=== PATIENT | female | born 1965 | race Caucasian/White ===

== ENCOUNTER 2019-09-04 07:56 | Day surgery (SDC) | payer BC ==
[2019-08-31 15:24] VITALS: BMI 27.1
[2019-09-04] MEDS ORDERED: INSULIN REGULAR HUMAN 100 UNITS/ML *VIAL SQ ONE (09:00)
[2019-09-04] MEDS ORDERED: MIDAZOLAM HCL 2 MG/2 ML SINGLE DOSE VIAL ONE (10:23)
[2019-09-04] MEDS ORDERED: PROPOFOL 20 ML ONE (10:23)
[2019-09-04] MEDS ORDERED: DEXAMETHASONE SOD PHOSPHATE 4 MG/1 ML VIAL ONE (10:23)
[2019-09-04] MEDS ORDERED: ceFAZolin SODIUM 1 GM VIAL ONE (10:23)
[2019-09-04] MEDS ORDERED: ONDANSETRON 4 MG/2 ML VIAL ONE ×2 (10:23→11:15)
[2019-09-04] MEDS ORDERED: LIDOCAINE HCL/PF 2% SDV 5ML VIAL ONE (10:23)
[2019-09-04] MEDS ORDERED: BUPIVACAINE HCL/PF 0.25% (2.5MG/ML) 10 ML VIAL IJ ONE (11:07)
[2019-09-04] MEDS ORDERED: methylPREDNISolone ACET (DEPO) 40 MG/1 ML VIAL IM ONE (11:07)
[2019-09-04] MEDS ORDERED: SUCCINYLCHOLINE CHLORIDE 200 MG/10 ML SYRINGE ONE (11:13)
[2019-09-04] MEDS ORDERED: GABAPENTIN 300 MG CAPSULE (FP) PO PRN (11:18)
[2019-09-04] MEDS ORDERED: ALBUTEROL SO4 8 GM HFA INHALER IH PRN (11:18)
--- NOTE | 2019-09-04 11:23 | PN ---
Progress Note (short form) - Note Progress Note: 54F s/p SARK POD #0. -Pain control. -WBAT RLE. -Percocet, Duexis ordered to patient's pharmacy. -f/u post-op trial of void. -Diet as tolerated. -Keep dressing clean & dry; d/c on Saturday & place waterproof Band-Aids over incision sites. -Cane vs crutches. -f/u [facility] [place] office 1 week; call for appointment; . Thom Drake MD (Orthopaedic Surgery).
--- NOTE | 2019-09-04 11:24 | OP ---
Operative Note - Note: Operative Date: 09/04/19 ( ) Pre-Operative Diagnosis: Internal derangement right knee Operation: Surgical arthroscopy right knee Findings: Tricompartment OA Post-Operative Diagnosis: Same as Pre-op Surgeon: Thom Drake Anesthesiologist/SHAGGER: Jose M Li Anesthesia: General Estimated Blood Loss (mls): 0 Fluid Volume Replaced (mls): 400 (Crystalloid) Operative Report Dictated: Yes
--- NOTE | 2019-09-04 11:44 | OP ---
DATE OF OPERATION: DATE OF DICTATION: 09/04/2019 SURGEON: Thom Drake MD PREOPERATIVE DIAGNOSIS: Synovitis and medial meniscal tear, right knee. POSTOPERATIVE DIAGNOSIS: Chondrocalcinosis with synovitis. OPERATION PERFORMED: Right knee arthroscopic lavage. ANESTHESIA: General. PROCEDURE: Patient correctly identified. Imaging was available for intraoperative evaluation in a bloodless field. The right lower extremity was prepped, draped in the routine manner with a Betadine scrub solution, wiped off with alcohol, DuraPrep applied. An anterolateral portal was utilized only. Time-out was called. The arthroscopic instrumentation introduced into the knee. Resulted in clear visualization of patchy synovitis, but the synovium was peppered with refringent-type deposits on the actual synovium diffusely throughout. This appeared to be either secondary to cortisone injections versus chronic calcinosis. The actual hyaline cartilage of the retropatellar surface of the entire femoral condyle was completely normal; however, tibial plateau particularly lateral side revealed streaking in the confines of the plateau pointing towards early degenerative arthritic changes on the right tibial plateau. The medial tibial plateau was normal. The menisci were completely normal. Intercondylar notches visualized. Found to be normal. All that we did here was a washout lavage. I gently used my scope to rub the synovium to see if I could dislodge any of the loose bodies and refringent bodies off the synovium, but this was futile. The washout washed out significant punctate, small floating lesions floating in the knee joint itself. One Marcaine steroid injection at the joint, and the portal was closed with 3-0 nylon. No complications. Thom Drake MD [id number]
[2019-09-04 13:05] VITALS: TEMP 97.8
[2019-09-04 13:06] VITALS: PULSE 76
[2019-09-04 13:11] VITALS: BP 129/73
[2019-09-04] MEDS ORDERED: INSULIN LISPRO 5 UNIT SQ SCH (14:00)
[2019-09-04] MEDS ORDERED: CARVEDILOL 6.25 MG TABLET (FP) PO SCH (22:00)
[2019-09-05] MEDS ORDERED: PATIENT'S OWN MEDICATION (NON-FORMULARY) (Insulin Glargine,Hum.Rec.Anlog [Basaglar Kwikpen SQ SCH (10:00)
== END 2019-09-04 12:50 | disposition home or self-care (01) ==
LOC: FASU 07:56
PROVIDERS: ATTEND Orthopaedic Surgery Orthopaedic Surgery of the Spine
PROC: 0SJC4ZZ Inspection of Right Knee Joint, Percutaneous Endoscopic Approach (ICD-10-PCS; principal; 2019-09-04 11:00)
DX: M11.261 Other chondrocalcinosis, right knee (principal); M65.9 Synovitis and tenosynovitis, unspecified
CPT/HCPCS: 82962; 94760

== ENCOUNTER 2019-12-09 07:22 | Inpatient (IN) | payer BC ==
[2019-11-30 16:05] VITALS: BMI 27.6
[~2019-12-09 07:22] MED LIST: CELECOXIB 200 MG CAPSULE PO ONE
[2019-12-09] MEDS ORDERED: BENZOIN/ALOE VERA/STORAX/TOLU 58 ML BOTTLE ONE (08:08)
[2019-12-09] MEDS ORDERED: oxyCODONE HCL 10 MG SUSTAINED ACTING TABLET PO ONE ×2 (08:15→08:40)
--- NOTE | 2019-12-09 08:15 | HP ---
History & Physical Update - History History: No Change - Physical Physical: No Change - Assessment Assessment: No Change - Plan Plan: No Change
[2019-12-09] MEDS ORDERED: MIDAZOLAM HCL 2 MG/2 ML SINGLE DOSE VIAL ONE ×2 (08:17→10:51)
[2019-12-09] MEDS ORDERED: SODIUM CHLORIDE 0.9% P/F 10 ML VIAL IJ ONE ×2 (08:18→10:41)
[2019-12-09] MEDS ORDERED: BUPIVACAINE LIPOSOME/PF (EXPAREL) 266 MG/20 ML VIAL ONE (08:18)
[2019-12-09] MEDS ORDERED: CELECOXIB 200 MG CAPSULE PO ONE (08:35)
[2019-12-09] MEDS ORDERED: CELECOXIB 200 MG CAPSULE ONE (08:36)
[2019-12-09] MEDS ORDERED: TRANEXAMIC ACID 1000 MG/10 ML VIAL IVPUSH ONE (10:00)
[2019-12-09] MEDS ORDERED: VANCOMYCIN 1,250 MG in DEXTROSE 5%-WATER - 250 ML IVPB ONE (10:00)
[2019-12-09] MEDS ORDERED: CEFAZOLIN 2 GM in DEXTROSE 5%-WATER - 50 ML IVPB ONE (10:00)
[2019-12-09] MEDS ORDERED: VANCOMYCIN 1,000 MG VIAL (RESTRICTED TO ID ONLY) ONE (10:07)
[2019-12-09] MEDS ORDERED: TRANEXAMIC ACID 1000 MG/10 ML VIAL ONE (10:41)
[2019-12-09] MEDS ORDERED: PROPOFOL 20 ML ONE ×7 (10:41→12:40)
[2019-12-09] MEDS ORDERED: PHENYLEPHRINE HCL 10 MG/1 ML SINGLE DOSE VIAL ONE (10:44)
[2019-12-09] MEDS ORDERED: ePHEDrine SULFATE 50 MG/1 ML AMPULE ONE (10:44)
[2019-12-09] MEDS ORDERED: SUCCINYLCHOLINE CHLORIDE 200 MG/10 ML SYRINGE ONE (10:44)
[2019-12-09] MEDS ORDERED: LIDOCAINE HCL/PF 2% SDV 5ML VIAL ONE (11:49)
--- NOTE | 2019-12-09 12:09 | HP ---
CHIEF COMPLAINT: PCP: Primary Psychiatrist: HISTORY OF PRESENT ILLNESS: Recent Events: PAST MEDICAL HISTORY: PAST SURGICAL HISTORY: Social History: Smoking: Alcohol: Drugs: Allergies shellfish derived Allergy (Severe, Verified 12/09/19 08:03) Hives CRABS, LOBSTER HOME MEDICATIONS: Home Medications Medication Instructions Recorded Gabapentin [Neurontin -] 300 mg PO BID PRN 11/11/18 Insulin Glargine,Hum.rec.anlog 45 unit SQ DAILY 11/11/18 [Basaglar Kwikpen U-100] Insulin Lispro [Humalog] 5 units SQ TID 11/11/18 Oxycodone HCl/Acetaminophen 30 mg PO Q6H PRN 11/11/18 [Oxycodone-Acetaminophen 10-325] Albuterol Sulfate Inhaler - 1 - 2 inh PO QID PRN 04/06/19 [Ventolin Hfa Inhaler -] Carvedilol [Coreg -] 6.25 mg PO BID 08/31/19 Albuterol Sulfate [Proventil Hfa] 6.7 gm IH PRN 11/30/19 Dann Chewable Aspirin 81 mg PO DAILY 11/30/19 Budesonide/Formeterol Fumarate 1 inh PO BID 11/30/19 [SYMBICORT 160/4.5mcg -] Valium 10 mg PO DAILY 11/30/19 REVIEW OF SYSTEMS CONSTITUTIONAL: Absent: fever, chills, diaphoresis, generalized weakness, malaise, loss of appetite, weight change HEENT: Absent: rhinorrhea, nasal congestion, throat pain, throat swelling, difficulty swallowing, mouth swelling, ear pain, eye pain, visual changes CARDIOVASCULAR: Absent: chest pain, syncope, palpitations, irregular heart rate, lightheadedness , peripheral edema RESPIRATORY: Absent: cough, shortness of breath, dyspnea with exertion, orthopnea, wheezing, stridor, hemoptysis GASTROINTESTINAL: Absent: abdominal pain, abdominal distension, nausea, vomiting, diarrhea, constipation, melena, hematochezia GENITOURINARY: Absent: dysuria, frequency, urgency, hesitancy, hematuria, flank pain, genital pain MUSCULOSKELETAL: Absent: myalgia, arthralgia, joint swelling, back pain, neck pain SKIN: Absent: rash, itching, pallor HEMATOLOGIC/IMMUNOLOGIC: Absent: easy bleeding, easy bruising, lymphadenopathy, frequent infections ENDOCRINE: Absent: unexplained weight gain, unexplained weight loss, heat intolerance, cold intolerance NEUROLOGIC: Absent: headache, focal weakness or paresthesias, dizziness, unsteady gait, seizure, mental status changes, bladder or bowel incontinence PHYSICAL EXAMINATION Vital Signs - 24 hr 12/09/19 08:00 Temperature 97.7 F Pulse Rate 74 Respiratory 20 Rate Blood Pressure 136/77 GENERAL: Awake, alert, and fully oriented, in no acute distress. HEAD: Normal with no signs of trauma. EYES: Pupils equal, round and reactive to light, sclera anicteric, conjunctiva clear. LUNGS: Breath sounds equal, clear to auscultation bilaterally. No wheezes, and no crackles. No accessory muscle use. HEART: Regular rate and rhythm, normal S1 and S2 ABDOMEN: Soft, nontender, not distended MUSCULOSKELETAL: Normal range of motion at all joints. No bony deformities or tenderness. No CVA tenderness. UPPER EXTREMITIES: 2+ pulses, warm, well-perfused. No cyanosis. No clubbing. No peripheral edema. LOWER EXTREMITIES: 2+ pulses, warm, well-perfused. No calf tenderness. No peripheral edema. NEUROLOGICAL: Cranial nerves II-XII intact. Normal speech. Laboratory Results - last 24 hr 12/09/19 08:22 POC Glucometer 220 ASSESSMENT/PLAN: Cardiac --no cardiac history --Revised Cardiac Risk Index for Pre-Operative Risk: 0 points, 0.4% risk of major cardiac event Pulmonary --no pulmonary history Neurological --no neurological or neurosurgical history; no history of trauma Anesthesia --no reported problems with anesthesia ECT is a low risk procedure. The relative benefits of the planned procedure outweigh the relative risks for this patient at this time.
--- NOTE | 2019-12-09 12:21 | HP ---
HISTORY OF PRESENT ILLNESS: 54 year-old female with a PMH significant for HTN, Type I IDDM, non-obstructive CAD, asthma, and right knee osteoarthritis s/p right total knee replacement with Dr. Thom Drake on 12/09/19. PAST MEDICAL HISTORY: Hypertension Type I IDDM (age 14) Non-obstructive coronary artery disease Asthma PAST SURGICAL HISTORY: Anterior cervical discectomy and fusion C4-C5 Right knee arthroscopy Cardiac catheterization Hysterectomy Social History: Smoking: current every day Alcohol: no Drugs: marijuana Family history: Mother heart disease, DM Father heart disease, DM Allergies shellfish derived Allergy (Severe, Verified 12/09/19 08:03) Hives CRABS, LOBSTER HOME MEDICATIONS: Home Medications Medication Instructions Recorded Gabapentin [Neurontin -] 300 mg PO BID PRN 11/11/18 Insulin Glargine,Hum.rec.anlog 45 unit SQ DAILY 11/11/18 [Basaglar Kwikpen U-100] Insulin Lispro [Humalog] 5 units SQ TID 11/11/18 Oxycodone HCl/Acetaminophen 30 mg PO Q6H PRN 11/11/18 [Oxycodone-Acetaminophen 10-325] Albuterol Sulfate Inhaler - 1 - 2 inh PO QID PRN 04/06/19 [Ventolin Hfa Inhaler -] Carvedilol [Coreg -] 6.25 mg PO BID 08/31/19 Albuterol Sulfate [Proventil Hfa] 6.7 gm IH PRN 11/30/19 Dann Chewable Aspirin 81 mg PO DAILY 11/30/19 Budesonide/Formeterol Fumarate 1 inh PO BID 11/30/19 [SYMBICORT 160/4.5mcg -] Valium 10 mg PO DAILY 11/30/19 REVIEW OF SYSTEMS CONSTITUTIONAL: Absent: fever, chills, diaphoresis, generalized weakness, malaise, loss of appetite, weight change HEENT: Absent: rhinorrhea, nasal congestion, throat pain, throat swelling, difficulty swallowing, mouth swelling, ear pain, eye pain, visual changes CARDIOVASCULAR: Absent: chest pain, syncope, palpitations, irregular heart rate, lightheadedness , peripheral edema RESPIRATORY: Absent: cough, shortness of breath, dyspnea with exertion, orthopnea, wheezing, stridor, hemoptysis GASTROINTESTINAL: Absent: abdominal pain, abdominal distension, nausea, vomiting, diarrhea, constipation, melena, hematochezia GENITOURINARY: Absent: dysuria, frequency, urgency, hesitancy, hematuria, flank pain, genital pain MUSCULOSKELETAL: Absent: myalgia, arthralgia, joint swelling, back pain, neck pain SKIN: Absent: rash, itching, pallor HEMATOLOGIC/IMMUNOLOGIC: Absent: easy bleeding, easy bruising, lymphadenopathy, frequent infections ENDOCRINE: Absent: unexplained weight gain, unexplained weight loss, heat intolerance, cold intolerance NEUROLOGIC: Absent: headache, focal weakness or paresthesias, dizziness, unsteady gait, seizure, mental status changes, bladder or bowel incontinence PSYCHIATRIC: Absent: anxiety, depression, suicidal or homicidal ideation, hallucinations. PHYSICAL EXAMINATION Vital Signs - 24 hr 12/09/19 08:00 Temperature 97.7 F Pulse Rate 74 Respiratory 20 Rate Blood Pressure 136/77 GENERAL: Awake, alert, and fully oriented, in no acute distress. HEAD: Normal with no signs of trauma. EYES: Pupils equal, round and reactive to light, extraocular movements intact, sclera anicteric, conjunctiva clear. No lid lag. EARS, NOSE, THROAT: Ears normal, nares patent, oropharynx clear without exudates. Moist mucous membranes. NECK: Normal range of motion, supple without lymphadenopathy, JVD, or masses. LUNGS: Breath sounds equal, clear to auscultation bilaterally. No wheezes, and no crackles. No accessory muscle use. HEART: Regular rate and rhythm, normal S1 and S2 without murmur, rub or gallop. ABDOMEN: Soft, nontender, not distended, normoactive bowel sounds, no guarding, no rebound, no masses. No hepatomegaly or splenomegaly. MUSCULOSKELETAL: Normal range of motion at all joints. No bony deformities or tenderness. No CVA tenderness. UPPER EXTREMITIES: 2+ pulses, warm, well-perfused. No cyanosis. No clubbing. No peripheral edema. LOWER EXTREMITIES: 2+ pulses, warm, well-perfused. No calf tenderness. No peripheral edema. NEUROLOGICAL: Cranial nerves II-XII intact. Normal speech. Normal gait. PSYCHIATRIC: Cooperative. Good eye contact. Appropriate mood and affect. SKIN: Warm, dry, normal turgor, no rashes or lesions noted, normal capillary refill. Laboratory Results - last 24 hr 12/09/19 08:22 POC Glucometer 220 Pre op Hgb 14.6 BUN 19 Cr 0.8 Intra op Ancef x 2g; Vanc x 1g EBL <100mL LR 700mL ASSESSMENT/PLAN 54 year-old female with a PMH significant for HTN, Type I IDDM, non-obstructive CAD, asthma, and right knee osteoarthritis s/p right total knee replacement with Dr. Thom Drake on 12/09/19. Right total knee replacement --POD #0 --perioperative antibiotics per surgery --pain management per surgery --ASA 81mg BID --protonix --bowel regimen --incentive spirometry --Hemovac drain, monitor output Hypertension --continue carvedilol Type I IDDM --Levemir 45U daily --Novolog sliding scale coverage Non-obstructive CAD --continue ASA, carvedilol Asthma --albuterol inhaler PRN FEN Fluids: LR@125mL/hr Electrolytes: replete as indicated Nutrition: regular diet DVT prophylaxis: OOB, ambulation, SCDs, TEDs, ASA 81mg BID Physical therapy Dispo: continues to require inpatient care. Full code. Visit type - Emergency Visit Emergency Visit: No - New Patient This patient is new to me today: Yes Date on this admission: 12/21/19 - Critical Care Critical Care patient: No
[2019-12-09] MEDS ORDERED: ceFAZolin SODIUM 1 GM VIAL ONE (13:26)
[2019-12-09] MEDS ORDERED: ONDANSETRON 4 MG/2 ML VIAL IVPUSH PRN ×2 (13:51→14:00)
[2019-12-09] MEDS ORDERED: MAGNESIUM HYDROX 2400MG/30ML ORAL SUSPENSION 30 ML CUP PO PRN (13:51)
[2019-12-09] MEDS ORDERED: MAG HYDROX/AL HYDROX/SIMETH 30 ML UNIT-DOSE CUP PO PRN (13:51)
[2019-12-09] MEDS ORDERED: ALBUTEROL SO4 HFA INHALER IH PRN (13:53)
[2019-12-09] MEDS ORDERED: LACTATED RINGERS SOLUTION 1,000 ML IV SCH ×2 (14:00)
[2019-12-09] MEDS ORDERED: HYDROmorphone HCL CARPU-JECT 1 MG/1 ML DISP.SYRIN IVPUSH PRN ×2 (14:00)
[2019-12-09] MEDS ORDERED: ALBUTEROL SO4 HFA INHALER IH SCH (14:00)
[2019-12-09] MEDS ORDERED: INSULIN LISPRO 5 UNIT SQ SCH (14:00)
--- NOTE | 2019-12-09 14:00 | OP ---
Operative Note - Note: Operative Date: 12/09/19 Pre-Operative Diagnosis: right knee osteoarthritis Operation: right total knee replacment Surgeon: Thom Drake Beater Engineer: Dee Dee Boles Anesthesiologist/WIRE STRAIGHTENING MACHINE OPERATOR: Miracle Zepeda Anesthesia: Spinal Estimated Blood Loss (mls): 50 Fluid Volume Replaced (mls): 700 Operative Report Dictated: Yes
[2019-12-09] MEDS ORDERED: diazePAM 5 MG TABLET PO PRN ×2 (14:02→14:30)
[2019-12-09] MEDS: ACETAMINOPHEN 325 MG TABLET (FP) PO SCH ×2 (14:40→21:27)
[2019-12-09] MEDS: oxyCODONE HCL 5 MG TABLET PO PRN ×2 (14:45→17:16)
[2019-12-09] MEDS ORDERED: INSULIN (NOVOLOG) ASPART 100 UNITS/ML 10ML VIAL SQ SCH (16:45)
[2019-12-09] MEDS ORDERED: INSULIN SLIDING SCALE (NOVOLOG) 1 VIAL SQ ONE (17:14)
[2019-12-09] MEDS: KETOROLAC TROMETHAMINE 30 MG/1 ML VIAL IVPUSH PRN (19:55)
[2019-12-09] MEDS: CEFAZOLIN 1 GM/D5W 1 GM/50 ML BAG IVPB SCH (21:28)
[2019-12-09] MEDS: SENNOSIDES/DOCUSATE COMBO (SENNA PLUS) TABLET (UD) PO SCH (21:28)
[2019-12-09] MEDS: GABAPENTIN 300 MG CAPSULE PO SCH (21:28)
[2019-12-09] MEDS: ASPIRIN 81 MG CHEWABLE TABLETS PO SCH (21:28)
[2019-12-09] MEDS: BUDESONIDE/FORMETEROL FUMARATE 160/4.5 mcg INHALER IH SCH (21:29)
[2019-12-09] MEDS: LIDOCAINE PATCH REMOVAL MC SCH (21:29)
[2019-12-09] MEDS: INSULIN SLIDING SCALE (NOVOLOG) 1 VIAL SQ SCH (21:35)
[2019-12-09] MEDS ORDERED: oxyCODONE HCL 10 MG SUSTAINED ACTING TABLET PO SCH (22:00)
[2019-12-09] MEDS ORDERED: CARVEDILOL 6.25 MG TABLET (FP) PO SCH (22:00)
[2019-12-10] MEDS: ACETAMINOPHEN 325 MG TABLET (FP) PO SCH ×4 (05:48→21:27)
[2019-12-10] MEDS: CEFAZOLIN 1 GM/D5W 1 GM/50 ML BAG IVPB SCH (05:56)
[2019-12-10] MEDS: KETOROLAC TROMETHAMINE 30 MG/1 ML VIAL IVPUSH PRN ×2 (06:53→17:22)
[2019-12-10] MEDS: INSULIN (LEVEMIR) 100 UNITS/ML UNITS SQ SCH (06:55)
[2019-12-10] MEDS: INSULIN SLIDING SCALE (NOVOLOG) 1 VIAL SQ SCH ×4 (06:55→21:28)
[2019-12-10 07:39] LABS: HEMATOCRIT 37.4 % (32.4-45.2); HEMOGLOBIN 12.5 GM/dl (10.7-15.3); MCH 31.1 pg (25.7-33.7); MCHC 33.3 g/dl (32.0-36.0); MEAN CELL VOLUME 93.4 fl (80-96); MEAN PLT VOLUME 9.3 fl (7.5-11.1); PLATELET COUNT 226 K/MM3 (134-434); RBC 4.01 M/mm3 (3.60-5.2); RDW 11.1 % (11.6-15.6); WHITE BLOOD COUNT 8.1 K/mm3 (4.0-10.8)
[2019-12-10 07:43] LABS: CREATININE 0.9 mg/dl (0.55-1.3); MAGNESIUM 1.8 mg/dL (1.8-2.4); POTASSIUM 4.9 mmol/L (3.5-5.1)
[2019-12-10] MEDS ORDERED: PT OWN MED DRAWER 7, Y5N ONE ×3 (08:17→21:57)
--- NOTE | 2019-12-10 08:28 | PN ---
Physical Exam: SUBJECTIVE: Patient seen and examined OBJECTIVE: Vital Signs Period Temp Pulse Resp BP Sys/Farooq Pulse Ox Last 24 Hr 97.5 F-98.7 F 70-89 13-19 121-178/67-89 95-100 GENERAL: The patient is awake, alert, and fully oriented, in no acute distress. LUNGS: Breath sounds equal, clear to auscultation bilaterally, no wheezes, no crackles, no accessory muscle use. HEART: Regular rate and rhythm, S1, S2 ABDOMEN: Soft, nontender, nondistended, normoactive bowel sounds, no guarding, no rebound, no hepatosplenomegaly, no masses. LLE: surgical dressing c/d/i; flex/extend toes, sensory intact; TEDs, SCDs NEUROLOGICAL: Cranial nerves II through XII grossly intact. Normal speech Laboratory Results - last 24 hr 12/09/19 12/09/19 12/09/19 14:03 17:08 21:33 WBC RBC Hgb Hct MCV MCH MCHC RDW Plt Count MPV Sodium Potassium Chloride Carbon Dioxide Anion Gap BUN Creatinine Est GFR (CKD-EPI)AfAm Est GFR (CKD-EPI)NonAf POC Glucometer 186 233 293 Random Glucose Calcium Magnesium 12/10/19 12/10/19 12/10/19 06:30 06:30 06:45 WBC 8.1 RBC 4.01 Hgb 12.5 Hct 37.4 MCV 93.4 MCH 31.1 MCHC 33.3 RDW 11.1 L Plt Count 226 MPV 9.3 Sodium 135 L Potassium 4.9 Chloride 102 Carbon Dioxide 25 Anion Gap 8 BUN 21.0 H Creatinine 0.9 Est GFR (CKD-EPI)AfAm 84.01 Est GFR (CKD-EPI)NonAf 72.49 POC Glucometer 263 Random Glucose 297 H Calcium 9.0 Magnesium 1.8 Active Medications Generic Name Dose Route Start Last Admin Trade Name Freq PRN Reason Stop Dose Admin Acetaminophen 650 mg 12/09/19 21:00 12/10/19 05:48 Tylenol - PO 12/12/19 20:59 Not Given Q6H ARIE Al Hydroxide/Mg Hydroxide 30 ml 12/09/19 13:51 Mylanta Oral Suspension - PO Q4H PRN DYSPEPSIA Albuterol Sulfate 1 - 2 puff 12/09/19 13:53 12/09/19 21:52 Ventolin Hfa Inhaler - IH 1 inh QID PRN Administration ASTHMA Aspirin 81 mg 12/09/19 22:00 12/09/19 21:28 Asa - PO 81 mg BID [facility] Administration Budesonide/Formoterol Fumarate 1 puff 12/09/19 22:00 12/09/19 21:29 Symbicort 160/4.5mcg - IH 1 puff BID ARIE Administration Diazepam 10 mg 12/10/19 20:00 Valium - PO DAILY@2000 PRN MUSCLE SPASMS Gabapentin 300 mg 12/09/19 22:00 12/09/19 21:28 Neurontin - PO 300 mg BID [facility] Administration Insulin Aspart 1 vial 12/09/19 22:00 12/10/19 06:55 Novolog Vial Sliding Scale - SQ 6 units ACHS [facility] Administration Protocol Insulin Detemir 45 units 12/10/19 07:00 12/10/19 06:55 Levemir Vial SQ 45 units DAILY@0700 [facility] Administration Ketorolac Tromethamine 30 mg 12/09/19 19:45 12/10/19 06:53 Toradol Injection - IVPUSH 12/14/19 19:44 30 mg Q6H PRN Administration PAIN LEVEL 1-5 Lidocaine 1 patch 12/10/19 10:00 Lidoderm Patch - TP DAILY [facility] Magnesium Hydroxide 30 ml 12/09/19 13:51 Milk Of Magnesia - PO PRN PRN CONSTIPATION Miscellaneous 1 each 12/09/19 22:00 12/09/19 21:29 Lidoderm Patch Removal MC 1 each DAILY@2200 [facility] Administration Multivitamins/Minerals/Vitamin C 1 tab 12/10/19 10:00 Tab-A-Vit - PO DAILY [facility] Carvedilol 6.25 Mg 6.25 each 12/10/19 10:00 Tablet (Pt's Own) PO BID [facility] Ondansetron HCl 4 mg 12/09/19 14:00 Zofran Injection IVPUSH Q6H PRN NAUSEA AND/OR VOMITING Oxycodone HCl 10 mg 12/09/19 14:00 Roxicodone - PO Q3H PRN PAIN LEVEL 1-5 Oxycodone HCl 15 mg 12/09/19 15:00 12/09/19 17:16 Roxicodone - PO 15 mg Q3H PRN Administration PAIN LEVEL 6-10 Pantoprazole Sodium 40 mg 12/10/19 10:00 Protonix - PO DAILY ARIE Senna/Docusate Sodium 2 tablet 12/09/19 22:00 12/09/19 21:28 Pericolace - PO 2 tablet BID ARIE Administration Pre op Hgb 14.6 BUN 19 Cr 0.8 Intra op Ancef x 2g; Vanc x 1g EBL <100mL LR 700mL ASSESSMENT/PLAN 54 year-old female with a PMH significant for HTN, Type I IDDM, non-obstructive CAD, asthma, and right knee osteoarthritis s/p right total knee replacement with Dr. Thom Drake on 12/09/19. Right total knee replacement --POD #0 --perioperative antibiotics per surgery --pain management per surgery --ASA 81mg BID --protonix --bowel regimen --incentive spirometry --Hemovac drain, monitor output Hypertension --continue carvedilol Type I IDDM --Levemir 45U daily --Novolog sliding scale coverage Non-obstructive CAD --continue ASA, carvedilol Asthma --albuterol inhaler PRN FEN Fluids: PO intake adequate Electrolytes: replete as indicated Nutrition: regular diet DVT prophylaxis: OOB, ambulation, SCDs, TEDs, ASA 81mg BID Physical therapy Dispo: continues to require inpatient care. Full code. Visit type - Emergency Visit Emergency Visit: No - New Patient This patient is new to me today: No - Critical Care Critical Care patient: No
--- NOTE | 2019-12-10 09:31 | PN ---
Progress Note (short form) - Note Progress Note: POD#1 PT complains of some Wheezing this. NO CP or nausea. Vital Signs Period Temp Pulse Resp BP Sys/Farooq Pulse Ox Last 24 Hr 97.5 F-98.7 F 70-89 13-19 121-178/67-89 95-100 hemovac:75ml GEN: A&0x3, NAD. OOB to chair CV: RRR Lungs: expiratory wheezing b/l to anterior chest, speaking in full sentences LE; no calf tenderness or swelling noted b/l. 5/5 dorsi/plantar flexion b/l. MO /SCds in place. Right knee: dresing c/d/i CBC, BMP 12/10/19 06:30 12/10/19 06:30 A/P: 54 yo female s/p Right TRK Spoke with nursing staff and will give pt her daily meds for asthma OOB and ambulate with PT DVT ppx with aspirin 81mg oral BID, SCDs/Teds Oral pain managment/stool softners to avoid constipation D/w Dr. Drake
--- NOTE | 2019-12-10 09:32 | OP ---
DATE OF OPERATION: DATE OF DICTATION: 12/09/2019 SURGEON: Thom Drake MD DATABASE ENGINEER: DIANE Garza PREOPERATIVE DIAGNOSIS: Tricompartmental osteoarthritis, right knee. POSTOPERATIVE DIAGNOSIS: Tricompartmental osteoarthritis, right knee. OPERATION PERFORMED: Right posterior-stabilized cemented total knee replacement. ANESTHESIA: Conscious sedation with spinal anesthesia and peripheral nerve block. ANTIBIOTICS GIVEN: Ancef 2 g and vancomycin 1 g preop; Ancef 1 g given at the end of the procedure. DESCRIPTION OF PROCEDURE: With the patient in the supine position, the right lower extremity was prepped and draped in the routine manner with Betadine scrub solution, wiped off with alcohol, and DuraPrep applied. A midline incision was utilized. The skin was opened. Subcutaneous dissection down to the fascia. The plane of the subcutaneous bed was exposed by first freeing the epimysial tissue off the medial aspect of the vastus medialis all the way down to the linea aspera medially. The medial aspect of the proximal tibia was freed by using a Bovie to free the soft tissue bed off the proximal tibial tissue. This was then up to the epimysial dissection medially. With finger dissection, the plane between the quadriceps and the bone was facilitated. A was placed in this position. The suprapatellar pouch was transected and the superior tissues resected, the tissues in the suprapatellar pouch. The knee was flexed. This was a tight knee. The appropriate jigs were utilized from [employer]. The tibia was cut to neutral in the line of the mechanical axis of the tibia; 2 mm of resection of the medial side was performed, the medial side being the most affected. The femur drill hole was inserted just superior to the intercondylar notch. The sword seated for the initial starter jig. This was followed with all the appropriate jigs the chamfer cuts, etc. These were appropriately performed. The flexion and extension gaps were measured at 9 mm. Complete stability at 9 mm was achieved, both in flexion and extension. Shock test appeared to be negative. This was noticeable in terms of kinetics once the actual trial components were inserted. All of the jig cuts enabled seating of the trial components to measure a size 4 Triathlon posterior-stabilized femoral component. A size 5 tibial baseplate was utilized. The patella was cut from the quadriceps tendon to the patellar ligament to receive an appropriate 27-mm polyethylene patellar liner. Once all jig cuts were made, trialing was performed, revealing excellent position of the implants and full reestablishment of the alignment of the knee in terms of the mechanical axis and a kinematics range of motion with a 9-mm polyethylene spacer of complete normality. Once this had been performed and we were happy with the flexion and extension gaps, the kinematics as well as the alignment, the bone bed was thoroughly lavaged with pulse lavage. Cementing was in 1 layer: Tibia, femur and then patella. A size 9-mm spacer was placed as well to help compress the implant and cement the component into the bone bed. The cement cured. Extraneous cement was removed. The tissue was thoroughly lavaged. A 9-mm polyethylene liner was inserted. This was a posterior-stabilized component. The wounds were thoroughly lavaged. The tissues were closed as follows: Retinacular tissue with 1 Vicryl, subcutaneous with 1 Vicryl, skin with 3-0 Monocryl and Steri-Strips. Drains: A 1/8-inch brought out laterally, draining the medial vastus bed. Kinematics were excellent. Range of motion was 0 to 120 degrees without any difficulty and complete stability achieved on the table. The operation went well. No complications. MD JOSTIN Cast/[id number]
[2019-12-10] MEDS: SENNOSIDES/DOCUSATE COMBO (SENNA PLUS) TABLET (UD) PO SCH ×2 (09:39→21:28)
[2019-12-10] MEDS: ASPIRIN 81 MG CHEWABLE TABLETS PO SCH ×2 (09:39→21:27)
[2019-12-10] MEDS: GABAPENTIN 300 MG CAPSULE PO SCH ×2 (09:39→21:27)
[2019-12-10] MEDS: PANTOPRAZOLE 40 MG TABLET PO SCH (09:39)
[2019-12-10] MEDS: oxyCODONE HCL 5 MG TABLET PO PRN ×3 (09:40→17:22)
[2019-12-10] MEDS ORDERED: PATIENT'S OWN MEDICATION (NON-FORMULARY) (Insulin Glargine,Hum.Rec.Anlog [Basaglar Kwikpen SQ SCH (10:00)
[2019-12-10] MEDS ORDERED: LIDOCAINE 5% TOPICAL PATCH TP SCH (10:00)
[2019-12-10] MEDS ORDERED: MULTIVITAMINS (DAILY MVI) TABLET (FP) PO SCH (10:00)
[2019-12-10] MEDS: BUDESONIDE/FORMETEROL FUMARATE 160/4.5 mcg INHALER IH SCH ×2 (11:00→21:28)
--- NOTE | 2019-12-10 11:29 | PN ---
Progress Note (short form) - Note Progress Note: POD #1 s/p R TKR under spinal anesthesia with adductor canal/selective tibial nerve block. Patient doing well, pain under control. All questions answered.
[2019-12-10] MEDS ORDERED: diazePAM 5 MG TABLET PO PRN (20:00)
[2019-12-10] MEDS: LIDOCAINE PATCH REMOVAL MC SCH (21:27)
[2019-12-11] MEDS: ACETAMINOPHEN 325 MG TABLET (FP) PO SCH ×2 (04:40→09:26)
[2019-12-11] MEDS: KETOROLAC TROMETHAMINE 30 MG/1 ML VIAL IVPUSH PRN (05:52)
--- NOTE | 2019-12-11 05:55 | PN ---
Progress Note (short form) - Note Progress Note: last pm fixed hemovac site where the tubing connected to the canister with a repair adapter. It had been pulled out during PT and was leaking. Secured site with tegaderm.
[2019-12-11] MEDS: INSULIN (LEVEMIR) 100 UNITS/ML UNITS SQ SCH (06:32)
[2019-12-11] MEDS: INSULIN SLIDING SCALE (NOVOLOG) 1 VIAL SQ SCH (06:32)
[2019-12-11] MEDS: oxyCODONE HCL 5 MG TABLET PO PRN (07:01)
--- NOTE | 2019-12-11 07:24 | SURG ---
Surgery Custom Tailor Apprentice Note Custom Tailor Apprentice: Dee Dee Boles PA-C Date of Service: 12/09/19 Diagnosis: right knee osteoarthritis Procedure: right total knee replacment I was present for the entirety of the operative procedure. For further detail, please refer to operative report. Visit type - Case Type Case Type: Scheduled - Emergency Emergency Visit: No - New patient This patient is new to me today: Yes Date on this admission: 12/11/19
--- NOTE | 2019-12-11 07:32 | PN ---
Progress Note (short form) - Note Progress Note: ORTHOPAEDIC SURGERY POD #2 No acue events per RN notes. Alert. Sitting in chair at bedside with legs in extension. Ice pack in place. C/o incisional pain Last Vital Signs Temp Pulse Resp BP Pulse Ox 98.2 F 110 H 18 150/78 94 L 12/11/19 06:00 12/11/19 06:00 12/11/19 06:00 12/11/19 06:00 12/11/19 06:00 CBC, BMP 12/11/19 07:00 12/10/19 06:30 GEN: A&0x3, NAD CV: RRR Lungs: CTA b/l RLE: dressing c/d/i. No evidence of a hematoma. All compartments soft. SCDs/ TEDs bilat. 5/5 dorsi/plantar flexion b/l. Hemovac removed while on rounds Problem List - Problems (1) Status post total right knee replacement using cement Assessment/Plan: POD #2 s/p Right TKR Continue DVT ppx OOB and ambuatle with PT DVT ppx with ASA 81mg bid x 6 weeks, MO/SCDs Cleared for DC home today Above plan discussed with Dr. Thom Drake and agrees. Problems reviewed: Yes Code(s): Z96.651 - PRESENCE OF RIGHT ARTIFICIAL KNEE JOINT
[2019-12-11 07:52] LABS: HEMATOCRIT 33.3 % (32.4-45.2); HEMOGLOBIN 11.1 GM/dl (10.7-15.3); MCH 31.1 pg (25.7-33.7); MCHC 33.4 g/dl (32.0-36.0); MEAN CELL VOLUME 93.2 fl (80-96); MEAN PLT VOLUME 10.4 fl (7.5-11.1); PLATELET COUNT 207 K/MM3 (134-434); RBC 3.57 M/mm3 (3.60-5.2); RDW 10.9 % (11.6-15.6); WHITE BLOOD COUNT 8.6 K/mm3 (4.0-10.8)
--- NOTE | 2019-12-11 08:43 | DS ---
"Physical Exam: SUBJECTIVE: Patient seen and examined OBJECTIVE: Vital Signs Period Temp Pulse Resp BP Sys/Farooq Pulse Ox Last 24 Hr 97.4 F-99.5 F 90-110 16-18 138-158/58-78 94-95 PHYSICAL EXAM GENERAL: The patient is awake, alert, and fully oriented, in no acute distress. LUNGS: Breath sounds equal, clear to auscultation bilaterally, no wheezes, no crackles, no accessory muscle use. HEART: Regular rate and rhythm, S1, S2 ABDOMEN: Soft, nontender, nondistended, normoactive bowel sounds, no guarding, no rebound, no hepatosplenomegaly, no masses. LLE: surgical dressing c/d/i; flex/extend toes, sensory intact; TEDs, SCDs NEUROLOGICAL: Cranial nerves II through XII grossly intact. Normal speech LABS Laboratory Results - last 24 hr 12/10/19 12/10/19 12/10/19 11:28 16:47 21:25 WBC RBC Hgb Hct MCV MCH MCHC RDW Plt Count MPV POC Glucometer 373 272 338 12/11/19 12/11/19 06:27 07:00 WBC 8.6 RBC 3.57 L Hgb 11.1 Hct 33.3 MCV 93.2 MCH 31.1 MCHC 33.4 RDW 10.9 L Plt Count 207 MPV 10.4 POC Glucometer 332 HOSPITAL COURSE: Date of Admission:12/09/19 Date of Discharge: 12/11/19 54 year-old female with a PMH significant for HTN, Type I IDDM, non-obstructive CAD, asthma, and right knee osteoarthritis s/p right total knee replacement with Dr. Thom Drake on 12/09/19. Right total knee replacement --post-operative course uncomplicated; perioperative antibiotics complete; pain well-managed on PO meds --ASA 81mg BID x 6 weeks Hypertension --continued carvedilol Type I IDDM --Levemir 45U daily --Novolog sliding scale coverage Non-obstructive CAD --continued ASA, carvedilol Asthma --albuterol inhaler PRN ISTOP The Drug Utilization Report below displays all of the controlled substance prescriptions, if any, that your patient has filled in the last twelve months. The information displayed on this report is compiled from pharmacy submissions to the Department, and accurately reflects the information as submitted by the pharmacies. This report was requested by: Angela Villagomez | Reference #: [id number] Others' Prescriptions Patient Name: Kyleigh Waters Date: 1965 Address: [address] [place] [address] Sex: Female Rx Written Rx Dispensed Drug Quantity Days Supply Prescriber Name 11/19/2019 11/22/2019 oxycodone hcl 30 mg tablet 90 30 Shein, Thom Duque MD 11/19/2019 11/19/2019 diazepam 10 mg tablet 30 30 Shein, Thom Duque MD 10/15/2019 10/23/2019 oxycodone hcl 30 mg tablet 90 30 Shein, Thom Duque MD 09/18/2019 09/24/2019 oxycodone hcl 30 mg tablet 90 30 Shein, Thom Duque MD 08/25/2019 08/25/2019 oxycodone hcl 30 mg tablet 120 30 Shein, Thom Duque MD 07/17/2019 07/27/2019 oxycodone hcl 30 mg tablet 90 30 Shein, Thom Duque MD 07/17/2019 07/19/2019 zolpidem tartrate 10 mg tablet 30 30 Shein, Thom Duque MD 06/25/2019 06/27/2019 oxycodone hcl 30 mg tablet 90 30 Shein, Thom Duque MD 06/25/2019 06/27/2019 zolpidem tartrate 10 mg tablet 30 30 Shein, Thom Duque MD 05/25/2019 05/27/2019 oxycodone hcl 30 mg tablet 90 30 Shein, Thom Duque MD 04/28/2019 04/28/2019 oxycodone hcl 30 mg tablet 90 30 Shein, Thom Duque MD 04/28/2019 04/28/2019 zolpidem tartrate 10 mg tablet 30 30 Shein, Thom Duque MD 03/19/2019 03/27/2019 oxycodone hcl 30 mg tablet 90 30 Shein, Thom Duque MD 03/19/2019 03/22/2019 zolpidem tartrate 10 mg tablet 30 30 Shein, Thom THAKUR S MD 02/19/2019 02/26/2019 oxycodone hcl 30 mg tablet 90 30 Thom Drake MS, MD 02/19/2019 02/19/2019 zolpidem tartrate 10 mg tablet 30 30 Thom Drake MS, MD 01/22/2019 01/26/2019 oxycodone hcl 30 mg tablet 90 30 Thom Drake MS, MD 12/24/2018 12/27/2018 oxycodone hcl 30 mg tablet 90 30 Thom Drake MS, MD Minutes to complete discharge: 35 Discharge Summary Problems reviewed: Yes Reason For Visit: RIGHT KNEE OSTEOARTHRITIS Condition: Improved - Instructions Diet, Activity, Other Instructions: Dr. Drake Discharge Instructions for Knee Replacement Post Operative Instructions Physical activity Physical Therapist will come to your home for the first 5 days. You will be set up with outpatient PT at your first post-operative visit. Use assistive devices for ambulation at all times. Weight bearing as tolerated on your surgical side. Do not put pillow under knee. May put pillow under heel. Wound care Leave your surgical dressing in place. Do not change the dressing until seen by your surgeon in the office. No baths or showers. Do not submerge your incision. Do not apply any ointments or lotions to your incision. Please call the office if your dressing is soiled/dirty or is falling off. Apply Graduated Compression Stockings (TEDS) to both lower extremities - remove daily for hygiene ONLY. Diet There are no dietary restrictions. Eat healthy, high-fiber foods. Drink 6 to 8 glasses of liquid each day. This will assist in keeping your bowels are regular. Pain management Any pain prescription medication ordered should be taken as prescribed for moderate to severe pain. Do not take additional Tylenol while taking Percocet. Take Aspirin 81 mg two times a day for a total of 6 weeks to prevent blood clots. Call Dr. Drake for any of the following: Severe pain not relieved by medication Fever of 101 or higher Excessive bleeding or drainage on dressing Inability to urinate If you experience chest pain or shortness of breath, please seek emergency care immediately. Please call the office at to confirm your post-op appointment for the week following surgery. This report was requested by: Dee Dee Boles | Reference #: [id number] 11/22/2019 oxycodone hcl 30 mg / 90 tablets / Thom Drake MS, MD 11/19/2019 diazepam 10 mg / 30 tablets / Thom Drake MS, MD Referrals: Thom Drake MD [Staff Physician] - Disposition: VNS/HOME HEALTH CARE - Home Medications Comprehensive Discharge Medication List: Ambulatory Orders Gabapentin [Neurontin -] 300 mg PO BID PRN 11/11/18 Insulin Glargine,Hum.rec.anlog [Basaglar Kwikpen U-100] 45 unit SQ DAILY Insulin Lispro [Humalog] 5 units SQ TID 11/11/18 Oxycodone HCl/Acetaminophen [Oxycodone-Acetaminophen 10-325] 30 mg PO Q6H PRN Albuterol Sulfate Inhaler - [Ventolin Hfa Inhaler -] 1 - 2 inh PO QID PRN Carvedilol [Coreg -] 6.25 mg PO BID 08/31/19 Albuterol Sulfate [Proventil Hfa] 6.7 gm IH PRN 11/30/19 Dann Chewable Aspirin 81 mg PO DAILY 11/30/19 Budesonide/Formeterol Fumarate [SYMBICORT 160/4.5mcg -] 1 inh PO BID 11/30/19 Valium 10 mg PO DAILY 11/30/19 Prescription Drug Monitoring Program (I-STOP) results: I-STOP reviewed and no issues identified This patient is new to me today: No Emergency Visit: No Critical Care patient: No - Discharge Referral Referred to [facility] No"
[2019-12-11] MEDS: ASPIRIN 81 MG CHEWABLE TABLETS PO SCH (09:26)
[2019-12-11] MEDS: PANTOPRAZOLE 40 MG TABLET PO SCH (09:27)
[2019-12-11] MEDS: SENNOSIDES/DOCUSATE COMBO (SENNA PLUS) TABLET (UD) PO SCH (09:27)
[2019-12-11] MEDS: GABAPENTIN 300 MG CAPSULE PO SCH (09:27)
[2019-12-11] MEDS: BUDESONIDE/FORMETEROL FUMARATE 160/4.5 mcg INHALER IH SCH (09:27)
[2019-12-11 13:28] VITALS: BP 152/54; PULSE 96; TEMP 98.4
--- NOTE | 2019-12-11 14:49 | PATH ---
Surgical Pathology Report Patient Name: OLGA BEGUM Med. Rec. #: [id number] /Age/Gender: 1965 (Age: 54) / F Account: [id number] Location: [facility] Taken: 12/09/2019 Received: 12/09/2019 Reported: 12/11/2019 Physicians: Thom Drake M.D. Specimen(s) Received RIGHT KNEE BONES Clinical History Right knee osteoarthritis Final Diagnosis BONE, KNEE, RIGHT, TOTAL KNEE REPLACEMENT: BONE WITH DEGENERATIVE JOINT DISEASE AND FIBROADIPOSE TISSUE. Electronically Signed Chitra Davidson M.D. Gross Description Received in formalin labeled "right knee bone," is a 12.0 x 10.5 x 1.2 cm aggregate of multiple portions of bone and soft tissue. The tibial plateau measures 7.6 x 5.0 x 1.3 cm. There are no areas of eburnation identified. The articular surfaces are hancock-yellow and focally granular. The underlying trabecular bone is yellow and hard. Brazer Induction sections are submitted in one cassette, following decalcification. /12/10/2019 [facility]12/10/2019
== END 2019-12-11 14:41 | disposition home health service (06) | DRG 470 ==
LOC: FM/S 07:22
PROVIDERS: ADMIT Orthopaedic Surgery Orthopaedic Surgery of the Spine; ATTEND Nurse Practitioner Acute Care
PROC: 0SRC0J9 Replacement of Right Knee Joint with Synthetic Substitute, Cemented, Open Approach (ICD-10-PCS; principal; 2019-12-09 10:53)
DX: M17.11 Unilateral primary osteoarthritis, right knee (principal); I10 Essential (primary) hypertension; I25.10 Atherosclerotic heart disease of native coronary artery without angina pectoris; J45.909 Unspecified asthma, uncomplicated; F17.210 Nicotine dependence, cigarettes, uncomplicated; E10.9 Type 1 diabetes mellitus without complications
CPT/HCPCS: 36415; 73560-TC-RT-FY; 80048; 82962; 83735; 85027; 88305-TC; 88311-TC; 94760; 97116-GP; 97163-GP

== ENCOUNTER 2020-10-18 08:25 | Inpatient (IN) | payer BC ==
[2020-10-18 08:38] VITALS: TEMP 97.7; BMI 20.8
[2020-10-18 09:39] LABS: BASO % 0.3 % (0-2.0); EOS % 3.5 % (0-4.5); HEMATOCRIT 36.4 % (32.4-45.2); HEMOGLOBIN 12.1 GM/dL (10.7-15.3); LYMPH % 23.3 % (8-40); MCH 29.9 pg (25.7-33.7); MCHC 33.3 g/dl (32.0-36.0); MEAN CELL VOLUME 89.9 fl (80-96); MEAN PLT VOLUME 9.5 fl (7.5-11.1); NEUT % 65.9 % (42.8-82.8); PLATELET COUNT 275 K/MM3 (134-434); RBC 4.05 M/mm3 (3.60-5.2); RDW 13.5 % (11.6-15.6); WHITE BLOOD COUNT 6.5 K/mm3 (4.0-10.0)
[2020-10-18 09:46] LABS: INR 0.97 (0.83-1.09)
[2020-10-18 09:53] LABS: CHLORIDE 102 mmol/L (98-107); POTASSIUM 4.4 mmol/L (3.5-5.1); SODIUM 137 mmol/L (136-145)
[2020-10-18 09:55] LABS: ALBUMIN 3.3 g/dl (3.4-5.0); ANION GAP 8 MMOL/L (8-16); BLOOD UREA NITROGEN 16.6 mg/dL (7-18); CO2 27 mmol/L (21-32); LIPASE 67 U/L (73-393)
[2020-10-18 09:56] LABS: GLUCOSE,RANDOM 290 mg/dL (74-106)
[2020-10-18 09:58] LABS: CREATININE 0.8 mg/dL (0.55-1.3); SGOT/AST 9 U/L (15-37); SGPT/ALT 16 U/L (13-61)
[2020-10-18 10:00] LABS: BILIRUBIN,TOTAL 0.6 mg/dL (0.2-1); TOT PROT 6.5 g/dl (6.4-8.2)
[2020-10-18 10:01] LABS: ALK PHOS 123 U/L (45-117)
[2020-10-18 13:19] VITALS: BP 176/86; PULSE 84
[2020-10-18] MEDS ORDERED: diazePAM 5 MG TABLET PO PRN (13:34)
[2020-10-18] MEDS ORDERED: ALBUTEROL SO4 HFA INHALER IH PRN (13:34)
[2020-10-18] MEDS ORDERED: ACETAMINOPHEN 325 MG TABLET (FP) PO PRN (13:34)
[2020-10-18] MEDS ORDERED: oxyCODONE HCL 5 MG TABLET PO PRN (13:38)
[2020-10-18] MEDS ORDERED: BUDESONIDE/FORMETEROL FUMARATE 160/4.5 mcg INHALER IH SCH (13:45)
[2020-10-18] MEDS ORDERED: HEPARIN NA (PORCINE) 5,000 UNITS/ML 1ML VIAL SQ SCH (13:45)
[2020-10-18] MEDS ORDERED: CARVEDILOL 6.25 MG TABLET (FP) PO SCH (13:45)
[2020-10-18] MEDS: ASPIRIN 81 MG CHEWABLE TABLETS PO SCH ×2 (13:49→15:37)
[2020-10-18] MEDS ORDERED: ALBUTEROL SO4 HFA INHALER IH SCH ×2 (15:15→20:00)
[2020-10-18] MEDS ORDERED: ASPIRIN 81 MG CHEWABLE TABLETS ONE (15:35)
[2020-10-18] MEDS ORDERED: INSULIN SLIDING SCALE (NOVOLOG) 1 VIAL SQ SCH (16:30)
[2020-10-18] MEDS ORDERED: methylPREDNISolone NA SUCC 40 MG/1 ML VIAL IVPUSH SCH (18:00)
[2020-10-18] MEDS ORDERED: methylPREDNISolone NA SUCC 40 MG/1 ML VIAL ONE (18:08)
[2020-10-18 18:12] LABS: CHOLESTEROL 159 mg/dL (50-200)
[2020-10-18 18:13] LABS: TRIGLYCERIDES 88 mg/dL (0-150)
[2020-10-18 18:14] LABS: LDL CHOLESTEROL (ONLY SJRH) 85 mg/dL (5-100)
[2020-10-18 18:15] LABS: HDL CHOLESTEROL 62 mg/dL (40-60)
[2020-10-18] MEDS ORDERED: GABAPENTIN 300 MG CAPSULE PO SCH (22:00)
[2020-10-19] MEDS ORDERED: INSULIN (LEVEMIR) 100 UNITS/ML UNITS SQ SCH (07:00)
== END 2020-10-18 19:20 | disposition left against medical advice (07) | DRG 192 ==
LOC: JER 08:25 → OBSVTOIN 11:08 → JERBED 11:08
PROVIDERS: ADMIT Family Medicine; ATTEND Family Medicine
DX: J44.1 Chronic obstructive pulmonary disease with (acute) exacerbation (principal); I25.10 Atherosclerotic heart disease of native coronary artery without angina pectoris; I10 Essential (primary) hypertension; J45.909 Unspecified asthma, uncomplicated; I44.7 Left bundle-branch block, unspecified; K76.0 Fatty (change of) liver, not elsewhere classified; E10.9 Type 1 diabetes mellitus without complications; I25.119 Atherosclerotic heart disease of native coronary artery with unspecified angina pectoris; R06.02 Shortness of breath; R07.2 Precordial pain
CPT/HCPCS: 36415; 71045-TC-FY; 80053; 80061; 82962; 83036; 83690; 83721; 84484; 85025; 85379; 85610; 85730; 93005; 93010; 99285-25; C9803; U0003